=== PATIENT | female | born 1975 | race African-American/Black ===

== ENCOUNTER 2018-11-25 18:48 | Emergency (ER) | payer MEDICAID ==
[~2018-11-25] VITALS: Ht 157.5 cm; Wt 130.0 kg
[~2018-11-25 18:48] MED LIST: NO MEDS
[2018-11-25 22:07] VITALS: BP 129/84
[2018-11-25] MEDS ORDERED: IBUPROFEN 600 MG TABLET PO ONE (22:30)
== END 2018-11-25 22:43 | disposition home or self-care (01) ==
LOC: EMS 18:50
DX: S29.012A Strain of muscle and tendon of back wall of thorax, initial encounter (principal); F17.210 Nicotine dependence, cigarettes, uncomplicated; V47.5XXA Car driver injured in collision with fixed or stationary object in traffic accident, initial encounter; Y93.89 Activity, other specified; Y92.89 Other specified places as the place of occurrence of the external cause; Y99.8 Other external cause status
CPT/HCPCS: 99406